=== PATIENT | male | born 1975 | race Caucasian/White ===

== ENCOUNTER → 2016-12-02 | Outpatient (CLI) | payer OTHER ==
--- NOTE | 2016-12-02 16:13 | KCIC ---
Indication: Right hand injury one month ago with limited movement. Time of exam 3:54 PM The metacarpals appear intact. The phalanges are intact. Carpus is unremarkable. No fractures are seen. Soft tissues are unremarkable. IMPRESSION: No acute bony abnormality is detected. Electronically signed by: Ho Manning MD (12/02/2016 4:09 PM) [id number]
== END | disposition home or self-care (01) ==
LOC: KCIC 15:45
DX: S69.91XA Unspecified injury of right wrist, hand and finger(s), initial encounter (principal); X58.XXXA Exposure to other specified factors, initial encounter; Y93.89 Activity, other specified; Y92.89 Other specified places as the place of occurrence of the external cause; Y99.8 Other external cause status
CPT/HCPCS: 73130